=== PATIENT | male | born 1975 | race Caucasian/White ===

== ENCOUNTER → 2017-05-25 | Day surgery (SDC) | payer OTHER ==
[2017-05-17 07:45] VITALS: Ht 188 cm; Wt 150.0 kg
--- NOTE | 2017-05-20 10:17 | PAT Medication Instructions ---
Service Date May 20, 2017. Current Home Medication List Ibuprofen (Ibuprofen), 3 TAB PO Medication Instructions For Your Scheduled Surgery -Contact your surgeon if you plan on taking: Ibuprofen (Ibuprofen), 3 TAB PO NOTHING TO EAT OR DRINK AFTER MIDNIGHT If you have any questions please call us at [phone] or [phone] or [phone]
[2017-05-20 11:16] LABS: BASO % 0.4 %; BASO ABS # 0.03 K/uL (0-0.2); EOS % 1.3 %; HEMATOCRIT 47.5 % (42-52); HEMOGLOBIN 16.1 g/dL (14.0-18.0); IG# 0.05 K/uL (0.00-0.02); LYMPH % 33.2 %; LYMPH ABS # 2.47 K/uL (1.2-3.4); MEAN CELL VOLUME 85.6 fL (80-100); MEAN CORPUSCULAR HGB CONC 33.9 g/dl (32-36); MEAN PLATELET VOLUME 10.6 fL (7.4-10.4); MONO % 10.5 %; MONO ABS # 0.78 K/uL (0.11-0.59); NEUT % 53.9 %; NEUT ABS # 4.02 K/uL (1.4-6.5); PLATELET COUNT 230 K/uL (130-400); RED CELL DISTRIBUTION WIDTH CV 13.4 % (11.5-14.5); RED CELL DISTRIBUTION WIDTH SD 41.7 fL (36.4-46.3); WHITE BLOOD COUNT 7.45 K/uL (4.8-10.8)
[2017-05-20 11:22] LABS: CALCIUM 9.2 mg/dl (8.5-10.1); CREATININE 1.11 mg/dl (0.60-1.40); POTASSIUM 4.2 mmol/L (3.5-5.1)
[~2017-05-25] VITALS: Ht 188 cm; Wt 150.0 kg
[~2017-05-25] MED LIST: ALBUTEROL 0.083% NEBU SOLN 3 ML VIAL INH ONE; ALBUTEROL 0.083% NEBU SOLN 3 ML VIAL INH PRN; ATROPINE SULFATE 0.1 MG/ML 5ML SYR IV PRN; CEFAZOLIN 3000MG IV PUSH 15 ML IV SCH; DEXAMETHASONE SOD INJ 4 MG/ML VIAL ONE; EpHEDrine SULFATE INJ 50 MG/ML AMP IV PRN; EpINEphrine INJ 1MG/ML AMP 1 MG/ML AMP ONE; FENTANYL CITRATE INJ 50 MCG/1 ML 2 ML VIAL IV PRN; FENTANYL CITRATE INJ 50 MCG/1 ML 2 ML VIAL ONE; HYDROmorphone INJ 1 MG/ML SYR IV PRN; IBUP1CAP9 PO; KETO10TA PO; KETOROLAC TROMETHAMINE 30 MG/ML VIAL ONE; LACTATED RINGER'S 1000ML 1,000 ML IV SCH; LIDOCAINE HCL 2% 2 ML VIAL (20MG/ML) ONE; MIDAZOLAM HCL 1 MG/ML 2ML VIAL ONE; ONDANSETRON INJ 2 MG/ML 2 ML VIAL IV PRN; ONDANSETRON INJ 2 MG/ML 2 ML VIAL ONE; OXYC-57 PO; OXYCODONE/ACETAMINOPHEN 5-325 TAB PO PRN; PROMETHAZINE HCL INJ 25 MG in SODIUM CHLORIDE 0.9% 50ML 50 ML IV STA; PROMETHAZINE HCL INJ 25 MG/ML 1 ML VIAL ONE; PROPOFOL IV EMULSION 10 MG/ML 20 ML VIAL IV ONE; ROPIVACAINE 0.5% 5 MG/ML 30 ML VIAL ONE; SODIUM CHLORIDE 0.9% 1000ML 1,000 ML IV SCH; SUCCINYLCHOLINE CHLORIDE 20 MG/ML 10 ML VIAL IV ONE
--- NOTE | 2017-05-25 06:49 | History & Physical Bridge - SC ---
H&P Re-Evaluation Bridge Note: I have examined the patient, reviewed the History & Physical and in the interval since the performance of the History & Physical I have noted the following changes of clinical significance: No changes noted
--- NOTE | 2017-05-25 08:40 | [facility] Post Operative Brief Note ---
Immediate Operative Summary Operative Date May 25, 2017. Pre-Operative Diagnosis Right Knee Acute Medial Meniscal Tear Post-Operative Diagnosis Same + DJD Procedure(s) Performed Right Knee Arthroscopy, Partial Medial Menisectomy + Chondroplasty MFC + Patella Surgeon Dr. Harley Steam Plant Control Room Operator Surgeon(s) Jason Green PA-C Estimated Blood Loss Minimal Findings Consistent with Post-Op Diagnosis Specimens None Anesthesia Type General Complication(s) none Disposition Disposition: Recovery Room / PACU
--- NOTE | 2017-05-25 08:47 | Discharge Instructions-SurgCtr ---
Discharge Instructions Date of Service May 25, 2017. Visit Reason for Visit: Right Knee Acute Medial Meniscus Tear Discharge Discharge Diagnosis / Problem: right medial meniscus tear Discharge Goals Goal(s): Decrease discomfort, Therapeutic intervention Activity Recommendations Activity Limitations: per Instructions/Follow-up section Weightbearing Status: Right weightbearing (as tolerated) Anesthesia . Post Anesthesia Instructions: If you have had General Anesthesia or IV Sedation: * Do not drive today. * Resume driving when surgeon permits. * Do not make important decisions or sign legal documents today. * Call surgeon for: 1. Temperature elevations greater than 101 degrees F. 2. Uncontrollable pain. 3. Excessive bleeding. 4. Persistent nausea and vomiting. 5. Medication intolerance (nausea, vomiting or rash). * For nausea and vomiting use only clear liquids such as: tea, soda, bouillon until nausea subsides, then gradually increase diet as tolerated. * If you have any concerns or questions, call your surgeon's office. If physician is unavailable and it is an emergency, call 911 or go to the nearest emergency room. . Instructions / Follow-Up Instructions / Follow-Up MEDICATIONS: * Resume previous medications unless instructed otherwise by your surgeon. * Always take pain medication on a full stomach or with food to avoid upset stomach. * Do not drink alcohol or drive while taking narcotics. * Ibuprofen or Tylenol may be taken if narcotic not needed. No ibuprofen while taking toradol SPECIAL CARE INSTRUCTIONS: __ None _x_ Keep extremity elevated and iced x 48 hours; apply ice 20-30 minutes 8-10 times/day. May remove at night. __ Crutches __ May discard when able __ Brace/Post-op shoe __ 24 hrs/day __ Remove at night _x_ Dressing __ Maintain until seen in office, may shower with plastic over site _x_ Remove dressings in 24-48 hours and then may shower x__ Cover incisions with band-aids after showering __ Do not remove steri-strips Call physician if chills or temperature rises above 102 degrees or pain unrelieved by prescribed pain medications. Office [phone] follow up in 2 weeks Diet Recommendations Home Diet: resume previous diet Procedures Procedures Performed: Right Knee Arthroscopy With Partial Medial Meniscectomy, Chondroplasty Pending Studies Studies pending at discharge: no Medical Emergencies . Who to Call and When: Medical Emergencies: If at any time you feel your situation is an emergency, please call 911 immediately. . Non-Emergent Contact Non-Emergency issues call your: Surgeon . . "Provider Documentation" section prepared by Marco Antonio Green. .
[2017-05-25 09:34] VITALS: TEMP 36.6
--- NOTE | 2017-05-25 09:53 | OPERATIVE REPORT ---
DATE OF OPERATION: 05/25/2017 SURGEON: Mahesh Harley MD ANCHOR TACKER: BRYAN Coleman PREOPERATIVE DIAGNOSES: 1. Right knee degenerative medial meniscus tear. 2. Right knee degenerative joint disease. POSTOPERATIVE DIAGNOSES: 1. Right knee degenerative medial meniscus tear. 2. Right knee degenerative joint disease with some grade 2/3 chondrosis of the medial femoral condyle and patella. PROCEDURES PERFORMED: 1. Right knee exam under anesthesia. 2. Right knee diagnostic arthroscopy. 3. Right knee arthroscopic partial medial meniscectomy. 4. Right knee chondroplasty of the medial femoral condyle. 5. Right knee chondroplasty of the patella. COMPLICATIONS: None. ESTIMATED BLOOD LOSS: Minimal. TOURNIQUET TIME: 21 minutes at 300 mmHg. ANESTHESIA: General. SPECIMENS: None. OPERATIVE INDICATIONS: The patient is a 41-year-old fairly active gentleman who has had a several month history of right knee pain and discomfort, relates back to an injury that he had, where he felt a pop in his knee. He was seen in clinic and diagnosed with a significant knee effusion. MRIs showed a medial meniscus tear. He had fairly minimal degenerative changes on x-ray and MRI. The patient elected to proceed with surgical treatment. OPERATIVE FINDINGS: Examination under anesthesia of the right knee revealed a large soft tissue envelope. He had a small to moderate size effusion. Range of motion was 0-135. No clinical instability. Yue was negative for mechanical symptoms. ARTHROSCOPIC FINDINGS: Arthroscopic findings revealed a moderate sized effusion. He did have a lot of loose cartilage pieces floating throughout his knee and in the suprapatellar pouch. On the undersurface of patella, he had grade 2-3 changes. The trochlea revealed some mild grade 1 changes. In the intercondylar notch, the ACL and PCL were intact. In the medial compartment, there was a tear of the very posterior horn of the medial meniscus. There was a pretty stable tear. He had some grade 2 chondrosis of the medial femoral condyle. In the lateral compartment, the articular surface of the meniscus was fairly well preserved. There was a little bit frayed area of the very posterior horn of the lateral meniscus. OPERATIVE PROCEDURE: The patient was taken to the operating room, identified and placed on the operating table in the supine position. All contact areas were appropriately padded. IV antibiotics were provided by anesthesia team. A general anesthetic was implemented by anesthesia team. Right thigh tourniquet was then placed and the right lower extremity was then prepped and draped in the usual sterile fashion. The right leg was elevated and exsanguinated with Esmarch and tourniquet was placed at 300 mmHg. Routine right knee arthroscopy was then performed through typical anteromedial and anterolateral portals. A superolateral outflow portal was established for outflow. I did have to resect some of the fat pad in order to pass the instruments inside the knee joint. Attention was first drawn to the medial meniscus. A partial medial meniscectomy was then performed using a combination of both motorized and hand controlled instruments. I resected the flap portion of this tear posteriorly. The remainder of the meniscus was intact, so we left it in place. I used the shaver to debride the loose cartilage at the distal end of the femur. Attention was drawn to the patellofemoral joint. With the use of the shaver, I did debride the loose cartilage in the undersurface of the patella. Once this was complete, I did trim just a little fraying of the very posterior horn of the lateral meniscus. Minimal meniscal tissue was removed. Once this was complete, the arthroscopic instruments were placed throughout the knee joint. All extraneous and loose debris were removed. The arthroscopic instruments were then removed from the joint. The portals were closed with 3-0 Prolene suture in a simple fashion. The knee was injected with 30 mL of 0.5% ropivacaine with epinephrine and 30 mg of Toradol. Sterile dressing with Xeroform, 4 x 4's, sterile cast padding and Ady bandage were applied. The tourniquet was then let down for a tourniquet time 21 minutes. The patient then brought out of general anesthesia and transferred to the recovery room in stable condition. The patient tolerated the procedure well with no complications. All needle and sponge counts were correct at the end of the operation. I attest to the content of the Intraoperative Record and any orders documented therein. Any exception s are noted below.
--- NOTE | 2017-05-25 09:55 | Anesthesiology Progress Note ---
Anesthesia Post Op Note Date & Time May 25, 2017 at 09:55 Vital Signs Pain Intensity: 0 Vital Signs Past 12 Hours Date Time Temp Pulse Resp B/P (MAP) Pulse Ox O2 Delivery O2 Flow Rate FiO2 05/25/17 09:34 36.6 83 18 146/92 (110) 95 Room Air 05/25/17 09:27 85 15 95 05/25/17 09:27 85 15 05/25/17 09:26 128/90 05/25/17 09:24 86 16 05/25/17 09:24 87 16 91 05/25/17 09:23 37.2 84 16 133/81 92 Room Air 05/25/17 09:21 133/81 05/25/17 09:19 87 15 96 05/25/17 09:19 85 15 05/25/17 09:18 86 15 05/25/17 09:18 88 15 96 05/25/17 09:16 138/86 05/25/17 09:13 84 16 05/25/17 09:13 86 16 96 05/25/17 09:11 141/88 05/25/17 09:08 90 20 05/25/17 09:08 91 20 91 05/25/17 09:07 91 12 96 05/25/17 09:07 92 12 05/25/17 09:06 130/99 05/25/17 09:02 92 12 97 05/25/17 09:02 80 12 05/25/17 09:01 135/93 05/25/17 08:57 90 23 96 05/25/17 08:57 90 23 05/25/17 08:56 159/99 05/25/17 08:52 89 24 05/25/17 08:52 88 24 94 05/25/17 08:51 135/101 05/25/17 08:48 149/91 05/25/17 08:47 37.2 90 20 149/91 95 Diffusion Mask 10 05/25/17 06:30 36.4 109 22 132/98 (109) 92 Room Air Notes Mental Status: alert / awake / arousable, participated in evaluation Pt Amnestic to Procedure: Yes Nausea / Vomiting: improving with treatment Pain: adequately controlled Airway Patency, RR, SpO2: stable & adequate BP & HR: stable & adequate Hydration State: stable & adequate Anesthetic Complications: no major complications apparent
[2017-05-25 10:10] VITALS: BP 137/80; PULSE 84; O2SAT 94
--- NOTE | 2017-05-26 16:42 | Anesthesiology Progress Note ---
Anesthesia Progress Note Date of Service May 26, 2017. Progress Notes Mr. Torres is a 41 yo male s/p knee surgery in the outpatient surgical center with Dr. Harley. Preoperatively, his exam was notable for an URI with cough and initially low oxygen saturation (92%). Lungs were CTAB and saturation improved with deep breaths and so decision was made to proceed with surgery. During consent, it was explained to patient that his cough would likely be worse after surgery. Patient did well intraop without complications, but after removal of his LMA he had a violent coughing fit. His oxygen saturation remained normal while coughing and in PACU the patient's coughing resolved but exam was notable for wheezing. The patient was given an albuterol treatment and started on IS. In phase 2, the patient's commented on his eye's looking funny. Discussed with the patient that he had been coughing and suspected the bruised appearance under his eyes was due to the severity of his coughing. Patient and without any additional questions at that time and discharged home. Contacted through the patient's mother today due to concerns about bruising under his eyes. Spoke to the patient by phone today and patient stated he has bruising under both eyes. Reassured patient that other than his coughing, there were no additional complications during surgery. Explained the normal course of bruising in this situation including that tissue under orbits should be purple in appearance today and that it should change to a yellow/ green prior to resolving in the next 7 days. Explained to patient that this is not complication he should expect from anesthesia in the future unless he has another URI. Instructed patient to call with questions or concerns or to contact us if he develops pain, swelling, or vision changes. Patient did not have any additional concerns. Maria Victoria Jaffe MD, PhD Anesthesiologist
== END | disposition home or self-care (01) ==
LOC: X.SURG 06:21
PROVIDERS: ATTEND Orthopaedic Surgery Sports Medicine
DX: S83.241A Other tear of medial meniscus, current injury, right knee, initial encounter (principal); M17.11 Unilateral primary osteoarthritis, right knee; X58.XXXA Exposure to other specified factors, initial encounter; E66.9 Obesity, unspecified; Z88.2 Allergy status to sulfonamides; Z83.3 Family history of diabetes mellitus

== ENCOUNTER 2023-08-16 01:39 | Inpatient (IN) ==
--- NOTE | 2023-08-16 02:02 | Emergency Department Note ---
History of Present Illness General Chief complaint: Arrhythmia/Palpitations Stated complaint: HEART PALPITATIONS Time Seen by Provider: 08/16/23 01:48 History of Present Illness This 48-year-old male presents the ER complaining of irregular heart beating since 11-12 o'clock tonight. No history of known A-fib. He does have a history of SVT. He does follow cardiology for this. He is on a beta-ayla. He did not take an extra beta-ayla tonight. Patient denies chest pain, dyspnea, fevers, numbness, tingling, localized weakness. No excessive alcohol use. He does chew tobacco. Home Medications Medication Instructions Recorded Confirmed Type ibuprofen 200 mg tablet (Advil) 600 mg PO Q6H PRN Pain 11/30/18 08/16/23 History nebivolol 10 mg tablet 10 mg PO DAILY #90 tabs 04/26/23 08/16/23 Rx famotidine 20 mg tablet 20 mg PO BID 08/16/23 08/16/23 History Allergies Allergy/AdvReac Type Severity Reaction Status Date / Time Sulfa (Sulfonamide Allergy Unknown UNSURE, Verified 08/16/23 02:01 Antibiotics) MOTHER TOLD HIM A CHILD Past Med/Surg History Medical History Hypokalemia Elevated TSH Atypical chest pain Palpitations ACL (anterior cruciate ligament) tear Family History Other No pertinent family history in first degree relatives Social History Smoking Status: Current every day smoker Tobacco Type: Smokeless Tobacco (Dip or Chew) Preferred Language: Nauruan Feels Safe at Home: Yes Review of Systems A total of 10 systems reviewed and were otherwise negative Physical Exam Vital Signs Vital Signs - 24 hr 08/16/23 01:39 08/16/23 01:43 08/16/23 01:49 Temperature 36.9 C Temperature Source Oral Pulse Rate 74 Pulse Rate from SpO2 Sensor Respiratory Rate Respiratory Effort / Characteristics Non-Labored Respiratory Depth Normal Blood Pressure 180/81 H Blood Pressure Mean 114 Pulse Oximetry 96 Oxygen Delivery Method Room Air Room Air Sepsis Recent Fever Within 48 Hours No Sepsis New/Unexplained Change in Mental Status No Sepsis Action Taken by Nursing No Action Required 08/16/23 01:51 08/16/23 01:52 08/16/23 01:55 Temperature Temperature Source Pulse Rate 111 H 116 H 127 H Pulse Rate from SpO2 Sensor Respiratory Rate 19 15 Respiratory Effort / Characteristics Respiratory Depth Blood Pressure Blood Pressure Mean Pulse Oximetry Oxygen Delivery Method Sepsis Recent Fever Within 48 Hours Sepsis New/Unexplained Change in Mental Status Sepsis Action Taken by Nursing 08/16/23 01:55 08/16/23 02:00 08/16/23 02:02 Temperature Temperature Source Pulse Rate 113 H Pulse Rate from SpO2 Sensor Respiratory Rate 14 Respiratory Effort / Characteristics Respiratory Depth Blood Pressure 171/98 H 133/107 H Blood Pressure Mean 112 109 Pulse Oximetry Oxygen Delivery Method Sepsis Recent Fever Within 48 Hours Sepsis New/Unexplained Change in Mental Status Sepsis Action Taken by Nursing 08/16/23 02:02 08/16/23 02:08 08/16/23 02:08 Temperature Temperature Source Pulse Rate 113 H 79 Pulse Rate from SpO2 Sensor 72 Respiratory Rate 16 14 Respiratory Effort / Characteristics Respiratory Depth Blood Pressure 133/100 Blood Pressure Mean 106 Pulse Oximetry 93 Oxygen Delivery Method Sepsis Recent Fever Within 48 Hours Sepsis New/Unexplained Change in Mental Status Sepsis Action Taken by Nursing 08/16/23 02:10 08/16/23 02:15 08/16/23 02:15 Temperature Temperature Source Pulse Rate 95 H 92 H Pulse Rate from SpO2 Sensor 86 80 Respiratory Rate 12 17 Respiratory Effort / Characteristics Respiratory Depth Blood Pressure 147/102 H Blood Pressure Mean 121 Pulse Oximetry 95 94 Oxygen Delivery Method Sepsis Recent Fever Within 48 Hours Sepsis New/Unexplained Change in Mental Status Sepsis Action Taken by Nursing 08/16/23 02:26 08/16/23 02:30 08/16/23 02:30 Temperature Temperature Source Pulse Rate 98 H 91 H Pulse Rate from SpO2 Sensor 83 Respiratory Rate 16 17 Respiratory Effort / Characteristics Respiratory Depth Blood Pressure 133/105 H Blood Pressure Mean 116 Pulse Oximetry 96 Oxygen Delivery Method Sepsis Recent Fever Within 48 Hours Sepsis New/Unexplained Change in Mental Status Sepsis Action Taken by Nursing 08/16/23 02:40 08/16/23 02:46 08/16/23 02:50 Temperature Temperature Source Pulse Rate 64 100 H 85 Pulse Rate from SpO2 Sensor 64 79 77 Respiratory Rate 14 17 20 Respiratory Effort / Characteristics Respiratory Depth Blood Pressure 149/98 H Blood Pressure Mean 115 Pulse Oximetry 94 93 93 Oxygen Delivery Method Sepsis Recent Fever Within 48 Hours Sepsis New/Unexplained Change in Mental Status Sepsis Action Taken by Nursing 08/16/23 03:05 08/16/23 03:10 08/16/23 03:15 Temperature Temperature Source Pulse Rate 76 79 Pulse Rate from SpO2 Sensor 81 85 61 Respiratory Rate 18 14 Respiratory Effort / Characteristics Respiratory Depth Blood Pressure 155/92 H Blood Pressure Mean 113 Pulse Oximetry 95 94 94 Oxygen Delivery Method Sepsis Recent Fever Within 48 Hours Sepsis New/Unexplained Change in Mental Status Sepsis Action Taken by Nursing 08/16/23 03:20 08/16/23 03:28 08/16/23 03:30 Temperature Temperature Source Pulse Rate 64 65 63 Pulse Rate from SpO2 Sensor 65 63 Respiratory Rate 14 20 Respiratory Effort / Characteristics Respiratory Depth Blood Pressure 154/92 H Blood Pressure Mean 112 Pulse Oximetry 94 93 Oxygen Delivery Method Sepsis Recent Fever Within 48 Hours Sepsis New/Unexplained Change in Mental Status Sepsis Action Taken by Nursing 08/16/23 03:40 08/16/23 03:45 Temperature Temperature Source Pulse Rate 64 61 Pulse Rate from SpO2 Sensor 64 62 Respiratory Rate 16 20 Respiratory Effort / Characteristics Respiratory Depth Blood Pressure 141/76 H Blood Pressure Mean 97 Pulse Oximetry 93 92 Oxygen Delivery Method Sepsis Recent Fever Within 48 Hours Sepsis New/Unexplained Change in Mental Status Sepsis Action Taken by Nursing VITALS: Vitals are noted on the nurse's note and reviewed by myself. Vital signs tachycardia GENERAL: Pleasant gentleman, in no acute distress, nondiaphoretic, well- developed well-nourished. SKIN: Capillary reflex less than 2 seconds. HEENT: Normocephalic. PERRLA. EOMI. Nares patent. Mucous membranes moist. Neck is supple without nuchal rigidity. HEART: Tachycardic irregularly irregular LUNGS: Clear to auscultation bilaterally without wheezes, rales or rhonchi. No retractions or accessory muscle use. ABDOMEN: Positive bowel sounds x 4. Normal tympanic percussion. Soft, nontender, without masses or organomegaly. Olsen sign negative. No guarding or rebound tenderness. no CVA tenderness MUSCULOSKELETAL: No gross musculoskeletal defects. NEURO: Patient was alert and oriented to person place and time. No focal neurological deficits. Course Administered Medications Discontinued Medications Diltiazem HCl (Diltiazem Hcl 5 Mg/Ml 5 Ml Vial) Confirm Administered Dose 25 mg IV .aXess [place] ONE Stop: 08/16/23 01:55 Last Admin: 08/16/23 02:03 Dose: Not Given Documented By: LATOYA Diltiazem HCl (Diltiazem Hcl 5 Mg/Ml 5 Ml Vial) 10 mg IV NOW STA Stop: 08/16/23 01:57 Last Admin: 08/16/23 02:04 Dose: 10 mg Documented By: LATOYA Co-signed By: COLLEEN Sodium Chloride (Nss) 1,000 mls @ 999 mls/hr IV .Q1H1M ONE Stop: 08/16/23 02:56 Last Infusion: 08/16/23 03:01 Dose: Infused Documented By: Admin: 08/16/23 02:04 Dose: 999 mls/hr Documented By: LATOYA Ioversol (Optiray 320 125ml) 125 ml IV ONCE ONE Stop: 08/16/23 03:04 Last Admin: 08/16/23 03:03 Dose: 118 ml Documented By: VANE Critical Care Time Critical Care Time: Yes Total Critical Care Time: 35 I have personally spent 35 minutes of critical care time in the direct management of this patient. This includes bedside care, interpretation of diagnostic studies, and testing, discussion with consultants, patient, and family members, and other required patient management activities. This 35 minutes is in excess of all separately billable procedures. Medical Decision Making Medical Records Attestation: I reviewed the patient's medical records. Home Medications Current Medication List: was personally reviewed by me Laboratory Data Attestation: I reviewed the patient's lab results. 08/16/23 01:59 08/16/23 01:59 Lab Results 08/16/23 Range/Units 01:59 WBC 9.19 (4.8-10.8) K/ul RBC 5.80 (4.70-6.10) M/uL Hgb 16.6 (14.0-18.0) g/dl Hct 49.8 (42.0-52.0) % MCV 85.9 (80.0-100.0) fL MCH 28.6 (25.0-34.0) pg MCHC 33.3 (32.0-36.0) g/dL RDW Std Deviation 41.4 (36.4-46.3) fL RDW Coeff of Stephon 13.3 (11.5-14.5) % Plt Count 253 (130-400) K/uL MPV 10.7 (9.4-12.4) fL Immature Gran % (Auto) 0.3 % Neut % (Auto) 53.8 % Lymph % (Auto) 32.4 % [place] % (Auto) 10.0 % Eos % (Auto) 2.8 % Baso % (Auto) 0.7 % Neut # (Auto) 4.94 (1.40-6.50) K/uL Lymph # (Auto) 2.98 (1.20-3.40) K/uL [place] # (Auto) 0.92 H (0.11-0.59) K/uL Eos # (Auto) 0.26 (0.00-0.50) K/uL Baso # (Auto) 0.06 (0.00-0.20) K/uL Immature Gran # (Auto) 0.03 (0.01-0.20) K/uL Sodium 139 (136-145) mmol/L Potassium 3.9 (3.5-5.1) mmol/L Chloride 108 H (98-107) mmol/L Carbon Dioxide 24 (21-32) mmol/L Anion Gap 7 (3-11) BUN 20 (6-23) mg/dl Creatinine 1.08 (0.6-1.4) mg/dl Est Cr Clr Drug Dosing 131.2 ml/min Est GFR ( Amer) 94.2 ml/min Est GFR (Non-Af Amer) 81.3 ml/min BUN/Creatinine Ratio 18.5 (10-20) Glucose 100 H (70-99(Fasting)) mg/dl Calcium 9.9 (8.6-10.3) mg/dl Magnesium 2.2 (1.7-2.4) mg/dl Total Bilirubin 0.5 (0.2-1.0) mg/dl AST 23 (13-39) U/L ALT 25 (7-52) U/L Alkaline Phosphatase 72 (34-104) U/L Total Creatine Kinase 196 (30-223) U/L Troponin I High Sens 7.9 (0-20) pg/ml Total Protein 7.2 (6.0-8.3) gm/dl Albumin 4.5 (3.4-5.0) gm/dl Globulin 2.7 (2.5-4.0) gm/dl Albumin/Globulin Ratio 1.7 (0.9-2) TSH 6.914 H (0.300-4.500) uIu/ml Free T4 0.92 (0.61-1.60) ng/dl Imaging Data Attestation: I personally reviewed and interpreted this imaging study as follows: Radiologist's Impression: Chest CTA 08/16/23 02:25 Exam(s): CTA CHEST IV Amt: 118 ML OPTIRAY 320 EXAM: CT Angiography Chest With Intravenous Contrast CLINICAL HISTORY: Reason for exam: PE. TECHNIQUE: Axial computed tomographic angiography images of the chest with intravenous contrast. Automated exposure control was utilized for the study. A dose lowering technique was utilized adhering to the principles of ALARA. MIP reconstructed images were created and reviewed. COMPARISON: No relevant prior studies available. FINDINGS: Pulmonary arteries: Unremarkable. No pulmonary embolism. Aorta: No acute findings. No thoracic aortic aneurysm. Lungs: Unremarkable. No mass. No consolidation. Pleural space: Unremarkable. No significant effusion. No pneumothorax. Heart: Cardiomegaly. No significant pericardial effusion. No evidence of RV dysfunction. Bones/joints: Mild diffuse groundglass opacities joints. No acute fracture. No dislocation. Soft tissues: Unremarkable. Lymph nodes: Unremarkable. No enlarged lymph nodes. IMPRESSION: No acute findings in the visualized arteries of the chest. Electronically signed by: Gerard Dale MD 08/16/23 04:20 AM [facility] Narrative prior records/ancillary studies reviewed. Triage Nursing notes reviewed. Additional history obtained from family. The patient's history was concerning for palpitations. Differential diagnosis: Etiologies such as premature contractions, electrolyte abnormality, cardiac dysrhythmia, thyroid dysfunction, pulmonary embolism, infection, gastrointestinal, as well as others were entertained. Physical examination: Benign as above. ER treatment provided: Cardizem, IV fluids On reassessment the patient felt better. Diagnostic interpretation by me: An order was placed for continuous cardiac monitoring. The monitor shows a rate of 60-1 50 with a A-fib rhythm per my interpretation. The electrocardiogram was ordered for palpitaions ECG: Irregularly irregular ventricular rate of 111. Impression A-fib RVR independently interpreted by myself The labs Independently Interpreted by myself revealed No worrisome leukocytosis, negative troponin, glucose 100 Imaging studies: Chest x-ray with no acute consolidation, pneumothorax or free air per my independent interpretation CTA as above CHADS2 Score Sex (male 0, female 1): 0 Congestive HF (1): 0 Hypertension (1) :0 Age >75 years (1) :0 Diabetes mellitus (1):0 Stroke/TIA/TE (2): 0 Score: 0 CHADS2 Unadjusted ischemic stroke rate (% per year) 0: 0.6% 1: 3.0% 2: 4.2% 3: 7.1% 4: 11.1% 5: 12.5% 6: 13.0% Consultation: A consultation was placed with the hospitalist. The case was discussed and diagnostics were reviewed. The patient was evaluated in the ER for further treatment. This appears to be consistent with new onset A-fib. Patient was given Cardizem. Medicine was consulted and case discussed. He will be evaluated by the medical service for possible admission. CHADS2 score is 0. He is low risk. I did defer to anticoagulation to the hospitalist.. By the evaluation outlined above emergent etiologies such as electrolyte abnormality, thyroid dysfunction, pulmonary embolism, infection, as well as others were deemed relatively unlikely. The pt informed about the findings as listed above. All questions were answered and pleased with the treatment. The chart was completed utilizing [employer] Speech voice recognition software. Grammatical errors, random word insertions, pronoun errors, and incomplete sentences are an occassional consequence of this system due to software limitations, ambient noise, and hardware issues. Any formal questions or concerns about the content, text, or information contained within the body of this dictation should be directly addressed to the physician boiler assistant operator for clarification. Impression & Plan New onset atrial fibrillation, Atrial fibrillation with RVR Discharge Plan Visit Data Chief Complaint: Arrhythmia/Palpitations Stated Complaint: HEART PALPITATIONS ED Provider: Ines Fagan ED Midlevel Provider: Ragini Gamble Discharge Problem: New onset atrial fibrillation, Atrial fibrillation with RVR Patient Disposition: Admitted As Inpatient Condition: Good Forms Stand Alone Forms: [employer] Prescriptions Prescriptions: No Action nebivolol 10 mg tablet 10 mg PO DAILY Qty: 90 3RF ibuprofen [Advil] 200 mg Tablet 600 mg PO Q6H PRN (Reason: Pain) famotidine 20 mg tablet 20 mg PO BID Referrals Referrals: Aiden Briggs MD [Primary Care Provider] -
[2023-08-16] MEDS: dilTIAZem HCl 5 MG/ML 5 ML VIAL IV ONE (02:03)
[2023-08-16] MEDS: SODIUM CHLORIDE 0.9% 1,000 ML IV ONE (02:04)
[2023-08-16] MEDS: dilTIAZem HCl 5 MG/ML 5 ML VIAL IV STA (02:04)
[2023-08-16 02:18] LABS: Basophils # (auto) 0.06 K/uL (0.00-0.20); Basophils % (auto) 0.7 %; Eosinophils # (auto) 0.26 K/uL (0.00-0.50); Eosinophils % (auto) 2.8 %; Hematocrit (blood only) 49.8 % (42.0-52.0); Hemoglobin 16.6 g/dl (14.0-18.0); Immature Granulocytes # (auto) 0.03 K/uL (0.01-0.20); Immature Granulocytes % (auto) 0.3 %; Lymphocytes # (auto) 2.98 K/uL (1.20-3.40); Lymphocytes % (auto) 32.4 %; Mean Corpuscular Hemoglobin 28.6 pg (25.0-34.0); Mean Corpuscular Hgb Conc 33.3 g/dL (32.0-36.0); Mean Corpuscular Volume 85.9 fL (80.0-100.0); Mean Platelet Volume 10.7 fL (9.4-12.4); Monocytes # (auto) 0.92 K/uL (0.11-0.59); Neutrophils # (auto) 4.94 K/uL (1.40-6.50); Neutrophils % (auto) 53.8 %; Platelet Count 253 K/uL (130-400); RDW Coefficient of Variation 13.3 % (11.5-14.5); RDW Standard Deviation 41.4 fL (36.4-46.3); White Blood Count 9.19 K/ul (4.8-10.8)
[2023-08-16] MEDS ORDERED: STAT IV Infusion **Titration per Protocol STA (02:25)
[2023-08-16 02:42] LABS: Albumin Globulin Ratio 1.7 (0.9-2); Albumin Level 4.5 gm/dl (3.4-5.0); BUN Creatinine Ratio 18.5 (10-20); Bilirubin,Total 0.5 mg/dl (0.2-1.0); Calcium 9.9 mg/dl (8.6-10.3); Creatinine Clr Calc Pharmacy 131.2 ml/min; Est GFR (African American) 94.2 ml/min; Est GFR (Non-African American) 81.3 ml/min; Globulin 2.7 gm/dl (2.5-4.0); Magnesium 2.2 mg/dl (1.7-2.4); Potassium 3.9 mmol/L (3.5-5.1); Total Protein 7.2 gm/dl (6.0-8.3)
[2023-08-16 02:48] LABS: Troponin I High Sensitivity 7.9 pg/ml (0-20)
[2023-08-16 02:57] LABS: Thyroid Stimulating Hormone 6.914 uIu/ml (0.300-4.500)
[2023-08-16] MEDS: OPTIRAY 320 125ml IV ONE (03:03)
[2023-08-16 03:35] LABS: T4 Free Thyroxine 0.92 ng/dl (0.61-1.60)
--- NOTE | 2023-08-16 04:20 | CT Scan Report ---
Exam(s): CTA CHEST IV Amt: 118 ML OPTIRAY 320 EXAM: CT Angiography Chest With Intravenous Contrast CLINICAL HISTORY: Reason for exam: PE. TECHNIQUE: Axial computed tomographic angiography images of the chest with intravenous contrast. Automated exposure control was utilized for the study. A dose lowering technique was utilized adhering to the principles of ALARA. MIP reconstructed images were created and reviewed. COMPARISON: No relevant prior studies available. FINDINGS: Pulmonary arteries: Unremarkable. No pulmonary embolism. Aorta: No acute findings. No thoracic aortic aneurysm. Lungs: Unremarkable. No mass. No consolidation. Pleural space: Unremarkable. No significant effusion. No pneumothorax. Heart: Cardiomegaly. No significant pericardial effusion. No evidence of RV dysfunction. Bones/joints: Mild diffuse groundglass opacities joints. No acute fracture. No dislocation. Soft tissues: Unremarkable. Lymph nodes: Unremarkable. No enlarged lymph nodes. IMPRESSION: No acute findings in the visualized arteries of the chest. Electronically signed by: Gerard Dale MD 08/16/23 04:20 AM
[2023-08-16] MEDS: dilTIAZem HCL 125 MG in DEXTROSE 5% 100 ML IV SCH (04:59)
--- NOTE | 2023-08-16 05:22 | History & Physical Report ---
Date of Service August 16, 2023 Assessment & Plan (1) Atrial fibrillation with RVR: Plan: 48-year-old male with past medical history significant for hyperlipidemia, obstructive sleep apnea, paroxysmal SVT, palpitations, hypertension, obesity, GERD presents with palpitations and found to be in rapid A-fib. Patient states around 10 PM he started feeling palpitations. No dizziness. No chest pain. No shortness of breath, no nausea. No abdominal pain. Normal bowel and bladder movements. Denies blood in the stool or black stools. Denies hematuria. No fevers. No cough. Currently resting comfortably and hemodynamically stable. In the ER after dose of IV Cardizem he converted to sinus rhythm. A-fib with RVR New onset A-fib Currently sinus rhythm after IV Cardizem Continue home Bystolic IV Lopressor as needed Chads Vas2 score is 1 Monitoring telemetry Echo Consult cardiology for further recommendations History of paroxysmal SVT On Bystolic Obstructive sleep apnea On CPAP Hypertension On Bystolic Will monitor GERD On famotidine Morbid obesity Needs counseling Nutrition follow-up DVT prophylaxis SCDs for now Disposition Telemetry Full code History of Present Illness Chief Complaint: New A-fib Primary Care Provider: Aiden Briggs MD 48-year-old male with past medical history significant for hyperlipidemia, obstructive sleep apnea, paroxysmal SVT, palpitations, hypertension, obesity, GERD presents with palpitations and found to be in rapid A-fib. Patient states around 10 PM he started feeling palpitations. No dizziness. No chest pain. No shortness of breath, no nausea. No abdominal pain. Normal bowel and bladder movements. Denies blood in the stool or black stools. Denies hematuria. No fevers. No cough. Currently resting comfortably and hemodynamically stable. In the ER after dose of IV Cardizem he converted to sinus rhythm. Past medical's. As mentioned above Past surgical history. Colonoscopy. ACL repair of the left knee. Social history. . No smoking. Alcohol occasional. No drug use. Family history. Father had diabetes. Allergies Allergy/AdvReac Type Severity Reaction Status Date / Time Sulfa (Sulfonamide Allergy Unknown UNSURE, Verified 08/16/23 02:01 Antibiotics) MOTHER TOLD HIM A CHILD Home Medications Medication Instructions Recorded Confirmed Type ibuprofen 200 mg tablet (Advil) 600 mg PO Q6H PRN Pain 11/30/18 08/16/23 History nebivolol 10 mg tablet 10 mg PO DAILY #90 tabs 04/26/23 08/16/23 Rx famotidine 20 mg tablet 20 mg PO BID 08/16/23 08/16/23 History Past Med/Surg History Medical History Hypokalemia Elevated TSH Atypical chest pain Palpitations ACL (anterior cruciate ligament) tear Family History Other No pertinent family history in first degree relatives Social History Smoking Status: Current every day smoker Tobacco Type: Smokeless Tobacco (Dip or Chew) Preferred Language: Kittitian Feels Safe at Home: Yes Review of Systems Review of Systems: All systems reviewed & are unremarkable except as noted in HPI & below Physical Exam Physical Exam: General- Not in distress. Head- atraumatic Eyes- PERRL. ENT- oropharynx clear Neck- supple, no JVD. Lungs- clear to auscultation no wheezing or crackles. Heart- regular rhythm; no murmur, no gallop. Abdomen- normal bowel sounds, soft, nontender, no distension. Extremities- no pretibial edema, no erythema seen. Neuro- alert, oriented PERRL, no facial palsy; no dysarthria; moves extremities. Skin- warm & dry Results & Data Results & Data Vital Signs (Past 12 Hours) Vital Signs Temp Pulse Resp BP Pulse Ox O2 Del Method 08/16/23 04:50 53 L 18 94 08/16/23 04:45 51 L 17 119/91 91 08/16/23 04:40 55 L 15 91 08/16/23 04:30 56 L 17 122/81 91 08/16/23 04:20 60 19 90 08/16/23 04:16 58 L 19 135/72 91 08/16/23 04:10 57 L 20 91 08/16/23 04:00 60 17 148/76 H 95 08/16/23 03:50 69 12 95 08/16/23 03:45 61 20 141/76 H 92 08/16/23 03:40 64 16 93 08/16/23 03:30 63 20 154/92 H 93 08/16/23 03:28 65 08/16/23 03:20 64 14 94 08/16/23 03:15 79 14 155/92 H 94 08/16/23 03:10 76 18 94 08/16/23 03:05 95 08/16/23 02:50 85 20 93 08/16/23 02:46 100 H 17 149/98 H 93 08/16/23 02:40 64 14 94 08/16/23 02:30 133/105 H 08/16/23 02:30 91 H 17 96 08/16/23 02:26 98 H 16 08/16/23 02:15 147/102 H 08/16/23 02:15 92 H 17 94 08/16/23 02:10 95 H 12 95 08/16/23 02:08 79 14 93 08/16/23 02:08 133/100 08/16/23 02:02 113 H 16 08/16/23 02:02 133/107 H 08/16/23 02:00 113 H 14 08/16/23 01:55 171/98 H 08/16/23 01:55 127 H 15 08/16/23 01:52 116 H 19 08/16/23 01:51 111 H 08/16/23 01:49 Room Air 08/16/23 01:43 36.9 C 74 180/81 H 96 Room Air Diagnostic Findings Laboratory Results WBC 9.19 K/ul (4.8-10.8) 08/16/23 01:59 RBC 5.80 M/uL (4.70-6.10) 08/16/23 01:59 Hgb 16.6 g/dl (14.0-18.0) 08/16/23 01:59 Hct 49.8 % (42.0-52.0) 08/16/23 01:59 MCV 85.9 fL (80.0-100.0) 08/16/23 01:59 MCH 28.6 pg (25.0-34.0) 08/16/23 01:59 MCHC 33.3 g/dL (32.0-36.0) 08/16/23 01:59 RDW Std Deviation 41.4 fL (36.4-46.3) 08/16/23 01:59 RDW Coeff of Stephon 13.3 % (11.5-14.5) 08/16/23 01:59 Plt Count 253 K/uL (130-400) 08/16/23 01:59 MPV 10.7 fL (9.4-12.4) 08/16/23 01:59 Immature Gran % (Auto) 0.3 % 08/16/23 01:59 Neut % (Auto) 53.8 % 08/16/23 01:59 Lymph % (Auto) 32.4 % 08/16/23 01:59 [place] % (Auto) 10.0 % 08/16/23 01:59 Eos % (Auto) 2.8 % 08/16/23 01:59 Baso % (Auto) 0.7 % 08/16/23 01:59 Neut # (Auto) 4.94 K/uL (1.40-6.50) 08/16/23 01:59 Lymph # (Auto) 2.98 K/uL (1.20-3.40) 08/16/23 01:59 [place] # (Auto) 0.92 K/uL (0.11-0.59) H 08/16/23 01:59 Eos # (Auto) 0.26 K/uL (0.00-0.50) 08/16/23 01:59 Baso # (Auto) 0.06 K/uL (0.00-0.20) 08/16/23 01:59 Immature Gran # (Auto) 0.03 K/uL (0.01-0.20) 08/16/23 01:59 Sodium 139 mmol/L (136-145) 08/16/23 01:59 Potassium 3.9 mmol/L (3.5-5.1) 08/16/23 01:59 Chloride 108 mmol/L (98-107) H 08/16/23 01:59 Carbon Dioxide 24 mmol/L (21-32) 08/16/23 01:59 Anion Gap 7 (3-11) 08/16/23 01:59 BUN 20 mg/dl (6-23) 08/16/23 01:59 Creatinine 1.08 mg/dl (0.6-1.4) 08/16/23 01:59 Est Cr Clr Drug Dosing 131.2 ml/min 08/16/23 01:59 Est GFR ( Amer) 94.2 ml/min 08/16/23 01:59 Est GFR (Non-Af Amer) 81.3 ml/min 08/16/23 01:59 BUN/Creatinine Ratio 18.5 (10-20) 08/16/23 01:59 Glucose 100 mg/dl (70-99(Fasting)) H 08/16/23 01:59 Calcium 9.9 mg/dl (8.6-10.3) 08/16/23 01:59 Magnesium 2.2 mg/dl (1.7-2.4) 08/16/23 01:59 Total Bilirubin 0.5 mg/dl (0.2-1.0) 08/16/23 01:59 AST 23 U/L (13-39) 08/16/23 01:59 ALT 25 U/L (7-52) 08/16/23 01:59 Alkaline Phosphatase 72 U/L (34-104) 08/16/23 01:59 Total Creatine Kinase 196 U/L (30-223) 08/16/23 01:59 Troponin I High Sens 7.9 pg/ml (0-20) 08/16/23 01:59 Total Protein 7.2 gm/dl (6.0-8.3) 08/16/23 01:59 Albumin 4.5 gm/dl (3.4-5.0) 08/16/23 01:59 Globulin 2.7 gm/dl (2.5-4.0) 08/16/23 01:59 Albumin/Globulin Ratio 1.7 (0.9-2) 08/16/23 01:59 TSH 6.914 uIu/ml (0.300-4.500) H 08/16/23 01:59 Free T4 0.92 ng/dl (0.61-1.60) 08/16/23 01:59 Impressions Chest CTA 08/16/23 02:25 Exam(s): CTA CHEST IV Amt: 118 ML OPTIRAY 320 EXAM: CT Angiography Chest With Intravenous Contrast CLINICAL HISTORY: Reason for exam: PE. TECHNIQUE: Axial computed tomographic angiography images of the chest with intravenous contrast. Automated exposure control was utilized for the study. A dose lowering technique was utilized adhering to the principles of ALARA. MIP reconstructed images were created and reviewed. COMPARISON: No relevant prior studies available. FINDINGS: Pulmonary arteries: Unremarkable. No pulmonary embolism. Aorta: No acute findings. No thoracic aortic aneurysm. Lungs: Unremarkable. No mass. No consolidation. Pleural space: Unremarkable. No significant effusion. No pneumothorax. Heart: Cardiomegaly. No significant pericardial effusion. No evidence of RV dysfunction. Bones/joints: Mild diffuse groundglass opacities joints. No acute fracture. No dislocation. Soft tissues: Unremarkable. Lymph nodes: Unremarkable. No enlarged lymph nodes. IMPRESSION: No acute findings in the visualized arteries of the chest. Electronically signed by: Gerard Dale MD 08/16/23 04:20 AM ECG Additional Comments: ECG. A-fib with rapid ventricular response rate of 111. Incomplete right bundle branch block. Code Status & VTE Plan VTE Prophylaxis Plan VTE Prophylaxis will be ordered: Yes
[2023-08-16] MEDS ORDERED: POLYETHYLENE (MIRALAX) 17 GM PACK PO PRN (06:02)
[2023-08-16] MEDS ORDERED: METOPROLOL TARTRATE 1 MG/ML VIAL IV PRN (06:02)
[2023-08-16] MEDS ORDERED: NITROGLYCERIN SL 0.4 MG/TAB TAB SL PRN (06:02)
[2023-08-16] MEDS ORDERED: ACETAMINOPHEN 325 MG TAB PO PRN (06:02)
--- NOTE | 2023-08-16 06:58 | XRay Report ---
XR chest 1V portable CLINICAL HISTORY: Dysrhythmia COMPARISON STUDY: Chest radiograph April 21, 2023. FINDINGS: Lung volumes are normal. Lungs are clear. There is no pneumothorax or pleural effusion. Mil d cardiomegaly is unchanged. Mediastinal contours are normal. There is no evidence for pulmonary cass a. IMPRESSION: No acute cardiopulmonary findings. ACT 112: Negative or not required by law. Electronically signed by: Miky Patino M.D. 08/16/2023 6:56 AM
[2023-08-16 07:36] LABS: Basophils # (auto) 0.06 K/uL (0.00-0.20); Basophils % (auto) 0.8 %; Eosinophils # (auto) 0.23 K/uL (0.00-0.50); Eosinophils % (auto) 3.1 %; Hematocrit (blood only) 46.6 % (42.0-52.0); Hemoglobin 15.7 g/dl (14.0-18.0); Immature Granulocytes # (auto) 0.04 K/uL (0.01-0.20); Immature Granulocytes % (auto) 0.5 %; Lymphocytes # (auto) 2.27 K/uL (1.20-3.40); Lymphocytes % (auto) 30.9 %; Mean Corpuscular Hemoglobin 28.8 pg (25.0-34.0); Mean Corpuscular Hgb Conc 33.7 g/dL (32.0-36.0); Mean Corpuscular Volume 85.3 fL (80.0-100.0); Mean Platelet Volume 10.7 fL (9.4-12.4); Monocytes # (auto) 0.73 K/uL (0.11-0.59); Monocytes % (auto) 9.9 %; Neutrophils # (auto) 4.02 K/uL (1.40-6.50); Neutrophils % (auto) 54.8 %; Platelet Count 242 K/uL (130-400); RDW Coefficient of Variation 13.4 % (11.5-14.5); RDW Standard Deviation 41.9 fL (36.4-46.3); Red Blood Count 5.46 M/uL (4.70-6.10); White Blood Count 7.35 K/ul (4.8-10.8)
[2023-08-16 07:53] LABS: Calcium 9.7 mg/dl (8.6-10.3); Creatinine Clr Calc Pharmacy 141.7 ml/min; Est GFR (African American) 103.4 ml/min; Est GFR (Non-African American) 89.2 ml/min; Magnesium 2.1 mg/dl (1.7-2.4); Potassium 4.4 mmol/L (3.5-5.1)
[2023-08-16 08:01] LABS: Troponin I High Sensitivity 9.2 pg/ml (0-20)
--- OUTSIDE RECORDS SUMMARY | 2023-08-16 08:42 | External Medical Summary | Summary of Care ---
Author Name Unknown Organization [facility] Address [address] [place] [address] Phone [phone] Care Team Providers Care Byproducts Maker Name Role Phone Aiden Briggs MD Primary Care Provider [phone] Reason for Visit * Reason Onset Date Comments Appointment 08/03/2023 Encounter Details Date Type Department Care Team (Late st Contact Info) Description 08/03/2023 Telephone Radiology [address] [place] [address] Ana Polo, RT (R) Appointment Allergies Active Allergy Reactions Criticality Noted Date Comments Sulfa Antibiotics 04/20/2004 documented as of this encounter (statuses as of 08/03/2023) Medications Medication Sig Dispensed Refills Start Date End Date Status Nebivolol HCl 10 MG Oral Tablet (Bystolic) Take 1 Tablet by mouth in the morning. 0 05/01/2023 Active Famotidine 20 MG Oral Tablet (Pepcid) Take 1 Tablet by mouth in the morning and 1 Tablet before bedtime. 60 Tablet 11 06/08/2023 Active CPAP every night at bedtime. 0 Active documented as of this encounter (statuses as of 08/03/2023) Active Problems Problem Noted Date Diagnosed Date HTN, goal below 140/90 06/08/2023 Dyslipidemia, goal LDL below 100 06/08/2023 Left shoulder pain 06/08/2023 Palpitations 06/30/2022 Obesity, morbid (more than 1 00 lbs over ideal weight or BMI > 40) 06/25/2020 KWAKU (obstructive sleep apnea) 04/10/2019 Paroxysmal SVT (supraventricular tachycardia) Gastroesophageal reflux disease with esophagitis 04/10/2019 documented as of this encounter (statuses as of 08/03/2023) Resolved Problems Problem Noted Date Diagnosed Date Resolved Date Body mass index (BMI) of 40. 0 to 44.9 in adult 07/10/2018 04/10/2019 Overview: Per Obesity protocol #1 ADVANCE DIRECTIVE INFORMATION 04/21/2005 04/10/2019 Overview: No, Advance Directive brochure offered , patient declined. documented as of this encounter (statuses as of 08/03/2023) Social History Tobacco Use Types Packs/Day Years Used Date Smoking Tobacco: Never Smokeless Tobacco: Current Chew Alcohol Use Standard Drinks/Week Comments Yes 0 (1 standard drink = 0.6 oz pur e alcohol) occasional PHQ-2 Answer Date Recorded PHQ Adult Total Score 1 06/30/2022 Hunger Vital Sign Answer Date Recorded Within the past 12 months, y ou worried that your food would run out before you got the money to buy more. Never true 07/01/19 23 Within the past 12 months, t he food you bought just didn't last and you didn't have money to get more. Never true 06/30/2022 Sex and Gender Information Value Date Recorded Sex Assigned at Male 06/30/2022 8:51 AM EST Gender Identity Male 06/30/2022 8:51 AM EST Sexual Orientation Straight 06/30/2022 8: 51 AM EST Job Start Date Occupation Industry Not on file Not on file Not on file documented as of this encounter Miscellaneous Notes * Telephone Encounter - Ana Polo RT (R) - 08/03/2023 11:39 AM EDT Left message for patient to arrive at 6:30am for check in and to donte back with any Yes answers to screening questions documented in this encounter Plan of Treatment Upcoming Encounters Date Type Department Care Team (Latest Contact Info) Description 08/05/2023 7:00 AM EDT Imaging Radiology [facility] [address] [place] [address] 08/10/2023 9:30 AM EDT Hospital Encounter ENDO [facility], Endoscopy Room [facility] [address] [place] [phone] Maryan Richardson MD [address] [place] [address] 08/10/2023 9:30 AM EDT - 08/10/2023 10:00 AM EDT Surgery ENDO [facility], Endoscopy Room [facility] [address] [place] [phone] Maryan Richardson MD [address] [place] [address] COLONOSCOPY FLEXIBLE PROXIMAL DIAGNOSTIC 09/05/2023 11:00 AM EDT Telemedicine Interventional Pain Center, [facility] [address] [place] [address] Tangela Haley PA-C [address] [place] [address] 09/06/2023 9:40 AM EDT Office Visit Family Practice [facility] [address] [place] [address] Denise Mckeon CRNP [address] [place] [address] 06/14/2024 10:00 AM EST Telemedicine Sleep Disorders Ctr [facility] [address] [place] [phone] Dayami Costa DO [address] [place] [address] Scheduled Procedures Name Priority Associated Diagnoses Date/Ti me COLONOSCOPY FLEXIBLE PROXIMAL DIAGNOSTIC Screen for colon cancer 08/10/2023 9:30 AM EDT Health Maintenance Due Date Last Done Comments Hepatitis C Screening 1994 Hepatitis B (1 of 3 - 19+ 3-dose series) 1995 DTaP,Tdap,and Td Vaccines (1 - Tdap) 04/22/2005 04/21/2005 Cologuard 2021 Colonoscopy 2021 Colorectal Cancer Screening 2021 Fecal Occult Blood Test 2021 Sigmoidoscopy 2021 COVID-19 Vaccine ( - 2022- season) 2022 Depression Screening 07/01/2023 06/30/2022 Influenza Vaccine (FLU shot) (Season Ended) 2024 GFR 06/08/2024 06/08/2023, 03/0 05/2022, 10/16/2018 Albumin/Creatinine Ratio 06/08/2026 06/08/2023 Diabetes Screening 06/08/2026 06/08/2023, 0 06/30/2022, 06/25/2020, Additional history exists Lipid Panel 06/08/2028 06/08/2023, 03/0 05/2022, 06/25/2020, Additional history exists GARDASIL-HPV IMMUNIZATION SERIES Aged Out No longer eligible based on patient's age to complete this topic MENINGOCOCCAL (MENACTRA/MENVEO) Aged Out No longer eligible based on patient's age to complete this topic Pneumococcal Vaccine: Pediatrics (0 to 5 Years) and At-Risk Patients (6 to 64 Years) Aged Out No longer eligible based on patient's age to complete this topic documented as of this encounter Medical Devices Not on filedocumented as of this encounter Care Teams Byproducts Maker Relationship Specialty Start Date End Date Aiden Briggs MD [address] [place] [address] PCP - General Family Medicine 06/25/20 documented as of this encounter
--- OUTSIDE RECORDS SUMMARY | 2023-08-16 08:42 | External Medical Summary | Summary of Care ---
Author Name Unknown Organization [facility] Address [address] [facility] [place] [address] Phone [phone] Care Team Providers Care Video News Editor Name Role Phone Aiden Briggs MD Primary Care Provider [phone] Encounter Details Date Type Department Care Team (Late st Contact Info) Description 08/10/2023 3:30 PM EDT Telemedicine Interventional Pain Center, [facility] [address] [place] [address] Tangela Haley PA-C [address] [place] [address] Cervical radicular pain* Allergies Active Allergy Reactions Criticality Noted Date Comments Sulfa Antibiotics 04/20/2004 documented as of this encounter (statuses as of 08/11/2023) Medications Medication Sig Dispensed Refills Start Date [...] as of this encounter (statuses as of 08/11/2023) Active Problems Problem Noted Date Diagnosed Date HTN, goal below 140/90 06/08/2023 Dyslipidemia, goal LDL below 100 06/08/2023 Left shoulder pain 06/08/2023 Palpitations 06/30/2022 Obesity, morbid (more than 1 00 lbs over ideal weight or BMI > 40) 06/25/2020 KWAKU (obstructive sleep apnea) 04/10/2019 Paroxysmal SVT (supraventricular tachycardia) Gastroesophageal reflux disease with esophagitis 04/10/2019 documented as of this encounter (statuses as of 08/11/2023) Resolved Problems Problem Noted Date Diagnosed Date Resolved Date Body mass index (BMI) of 40. 0 to 44.9 in adult 07/10/2018 04/10/2019 Overview: Per Obesity protocol #1 ADVANCE DIRECTIVE INFORMATION 04/21/2005 04/10/2019 Overview: No, Advance Directive brochure offered , patient declined. documented as of this encounter (statuses as of 08/11/2023) Social History Tobacco Use Types Packs/Day Years [...] on file documented as of this encounter Progress Notes * Tangela Haley PA-C - 08/11/2023 7:49 AM EDT Name: Abilio Torres Date: 08/11/2023 Patient location: HOME. I was in a hospital or clinic location. After connecting through televideo,patient was verified with two unique identifiers. Patient (or authorized legal litigation claim representative) was then informed that this was a Telemedicine visit and being conducted confidentially over secure lines. Methods to assure confidentiality were taken. Patient acknowledged consent and understanding of pr ivacy and security of the Telemedicine visit. The patient agreed to participate. Video start 152 Video end [id number] HPI: Abilio Torres is a 48 year old male known to the Pain Management clinic presents for follow up to review C spine MRI. Locates pain left neck, posterior shoulder and UE into triceps and forearm. Can radiate into occipital region as well. Baseline weakness and paresthesia LEFT UE. Denies dexterity changes. Denies RIGHT UE pain. Denies bowel/bladder dysfunction. Follows with chiropractor which does provide some relief, generally weekly for the past three years. Continues home stretching/exercise program. Reviewed C spine MRI 08/04 - no acute fracture, mild to moderate LEFT foraminal narrowing C5/6, no significant central stenosis, diffuse facet arthropathy, no cord signal changes, moderate to severe RIGHT foraminal narrowing C5/6. History: Past Medical History: Diagnosis Date Gastroesophageal reflux disease with esophagitis 04/10/2019 NO KNOWN PROBLEMS Obesity, morbid (more than 100 lbs over ideal weight or BMI > 40) ([facility]) 06/25/2020 KWAKU (obstructive sleep apnea) 04/10/2019 Paroxysmal SVT (supraventricular tachycardia) ([facility]) 04/10/2019 Sleep apnea, obstructive Past Surgical History: Procedure Laterality Date REPAIR OF KNEE LIGAMENTS 1999 ACL repair of the left knee Current Outpatient Medications Medication Sig Dispense Refill Nebivolol HCl 10 MG Oral Tablet (Bystolic) Take 1 Tablet by mouth in the morning. Famotidine 20 MG Oral Tablet (Pepcid) Take 1 Tablet by mouth in the morning and 1 Tablet before bedtime. 60 Tablet 11 CPAP every night at bedtime. No current facility-administered medications for this visit. Review of patient's allergies indicates: Allergen Reactions Sulfa Antibiotics ROS: CONSTITUTIONAL: Denies anorexia, weight loss, fever, night sweats. RESPIRATORY: Denies shortness of breath, wheezing, productive cough. CARDIOVASCULAR: Denies chest pains, irregular heartbeat. HEME: Denies easy bruising and anticoagulation use. ROS EXAM: Remainder of ROS negative as discussed above in the HPI. PHYSICAL EXAM: There were no vitals taken for this visit. GENERAL: WD/WN male who is awake and alert. Does not appear to be in acute distress. MENTAL STATUS: Oriented x 3. Pleasant and cooperative with normal affect. IMAGING: MRI C SPINE WO CONTRAST 08/05/2023 7:13 am The alignment of the cervical spine is normal. A few vertebral hemangiomas are seen involving T1 and T3 vertebral bodies. Mild endplate degenerative changes are noted at C3-C4 and C4-C5 levels. Vertebral bodies otherwise demonstrate normal signal intensity on all sequences. No acute fracture is identified; however, if trauma is suspected, a CT scan would be a more sensitive examination for fractures. The craniocervical junction is normal. The visualized portions of the skull base and the posterior fossa are normal. The spinal cord demonstrates normal signal intensity on all sequences. Multilevel disc desiccation is seen in the cervical spine. There are no annular fissures identified. No soft tissue abnormality is identified. Normal signal voids are present in the vertebral arteries. C2-C3: The disk is normal in configuration. There is mild bilateral facet arthropathy. There is no uncovertebral joint disease. There is no neuroforaminal stenosis. There is no spinal canal stenosis. C3-C4: Mild disc bulge. There is mild bilateral facet arthropathy. There is kqxk-be-ccxkydjb right and mild left uncovertebral joint disease. There is daub-yt-grdpwtlz right and mild left neuroforaminal stenosis. There is no spinal canal stenosis. C4-C5: Mild disc bulge. There is pbpo-pa-iouyogjm bilateral facet arthropathy. There is mild bilateral uncovertebral joint disease. There is mild bilateral neuroforaminal stenosis. There is no spinalcanal stenosis. C5-C6: A small disc osteophyte complex. There is recb-en-cfiyaqsl bilateral facet arthropathy. There is moderate to severe right and vbyl-hn-bgwidyfj left uncovertebral joint disease. There is moderate to severe right and hlyg-tl-zqrdszev left neuroforaminal stenosis. There is no spinal canal stenos is. C6-C7: Minimal disc bulge. There is mild bilateral facet arthropathy. There is no uncovertebral joint disease. There is no neuroforaminal stenosis. There is no spinal canal stenosis. C7-T1: Mild disc bulge. There is mild bilateral facet arthropathy. There is no uncovertebral joint disease. There is no neuroforaminal stenosis. There is no spinal canal stenosis. IMPRESSION Multilevel degenerative changes in the cervical spine as described above, more pronounced at C5-C6 level with resultant moderate to severe right and cked-du-qswaseni left neural foraminal stenosis atthis level. No evidence of significant spinal canal stenosis. ASSESSMENT: Cervical radicular pain RECOMMENDATION: Continued neck pain that radiates to L UE. Baseline weakness and paresthesia. Symptoms are affecting ADL. Reviewed C spine MRI 08/04 - no acute fracture, mild to moderate LEFT foraminal narrowing C5/6, no significant central stenosis, diffuse facet arthropathy, no cord signal changes, moderate to severe RIGHT foraminal narrowing C5/6. Discussed possible EVELIA, declines for now - will contact clinicif interested. Discussed possible medication management including prescription NSAID (Celebrex or diclofenac) which would replace OTC NSAID. Could also consider gabapentin. Will send MyG with additional medication information. Reviewed red flag symptoms. Will contact clinic UE weakness worsens or begins to experience dexterity changes. I spent a total of 23 minutes on the date of service in preparation, delivery, and documentation ofthe care provided to Abilio Torres excluding any time spent in the performance of separately billed services. Tangela Haley PA-C 08/11/2023 documented in this encounter Plan of Treatment Upcoming Encounters Date Type Department Care Team (Late st Contact Info) Description 09/06/2023 9:40 AM EDT Office Visit Family Practice [facility] [address] [place] [address] Denise Mckeon CRNP [address] [place] [address] 06/14/2024 10:00 AM EST Telemedicine Sleep Disorders Ctr [facility] [address] [place] [phone] Dayami Costa DO [address] [place] [address] Health Maintenance Due Date Last Done Comments Hepatitis C Screening 1994 Hepatitis B (1 of 3 - 19+ 3-dose series) 1995 DTaP,Tdap,and Td Vaccines (1 - Tdap) 04/22/2005 04/21/2005 Cologuard 2021 Fecal Occult Blood Test 2021 Sigmoidoscopy 2021 COVID-19 Vaccine (1 - 2022- season) 2022 Depression Screening 07/01/2023 06/30/2022 Influenza Vaccine (FLU shot) (Season Ended) 2024 GFR 06/08/2024 06/08/2023, 03/0 05/2022, 10/16/2018 Albumin/Creatinine Ratio 06/08/2026 06/08/2023 Diabetes Screening 06/08/2026 06/08/2023, 0 06/30/2022, 06/25/2020, Additional history exists Lipid Panel 06/08/2028 06/08/2023, 03/0 05/2022, 06/25/2020, Additional history exists Colonoscopy 08/09/2033 08/10/2023 Colorectal Cancer Screening 08/09/2033 GARDASIL-HPV IMMUNIZATION SERIES Aged Out No longer [...] Not on filedocumented as of this encounter Visit Diagnoses Diagnosis Cervical radicular pain- Primary Brachial neuritis or radiculitis nos documented in this encounter Care Teams Video News Editor Relationship Specialty Start Date End Date Aiden Briggs MD [address] [place] [address] PCP - General Family Medicine 06/25/20 documented as of this encounter
--- OUTSIDE RECORDS SUMMARY | 2023-08-16 08:42 | External Medical Summary | Summary of Care ---
Author Name Unknown Organization [facility] Address [address] [facility] [place] [address] Phone [phone] Care Team Providers Care Filling Carrier Name Role Phone Aiden Briggs MD Primary Care Provider [phone] Reason for Visit * Auth/Cert Specialty Diagnoses / Procedures Referred By Tressa vazquez Referred To Contact Diagnoses Screen for colon cancer Screen for colon cancer [Z12.11] Procedures COLONOSCOPY, DIAGNOSTIC (RECTUM) COLONOSCOPY FLEXIBLE PROXIMAL DIAGNOSTIC Maryan Richardson MD [address] [place] [address] [facility] [address] [facility] [phone] Referral ID Status Reason Start Date Expiration Date Visits Re quested Visits Authorized [id number] [phone] Encounter Details Date Type Department Care Team (Latest Contact Info) Description 08/10/2023 8:40 AM EDT - 08/10/2023 10:45 AM EDT Hospital Encounter [facility], Endoscopy [facility] [address] [place] [address] Maryan Richardson MD [address] [facility] [place] [address] Colon[facility] Discharge Disposition: Home - Self Care Allergies Active Allergy Reactions Criticality Noted Date Comments Sulfa Antibiotics 04/20/2004 documented as of this encounter (statuses as of 08/10/2023) Medications Medication Sig Dispensed Refills Start Date [...] as of this encounter (statuses as of 08/10/2023) Active Problems Problem Noted Date Diagnosed Date HTN, goal below 140/90 06/08/2023 Dyslipidemia, goal LDL below 100 06/08/2023 Left shoulder pain 06/08/2023 Palpitations 06/30/2022 Obesity, morbid (more than 1 00 lbs over ideal weight or BMI > 40) 06/25/2020 KWAKU (obstructive sleep apnea) 04/10/2019 Paroxysmal SVT (supraventricular tachycardia) Gastroesophageal reflux disease with esophagitis 04/10/2019 documented as of this encounter (statuses as of 08/10/2023) Resolved Problems Problem Noted Date Diagnosed Date Resolved Date Body mass index (BMI) of 40. 0 to 44.9 in adult 07/10/2018 04/10/2019 Overview: Per Obesity protocol #1 ADVANCE DIRECTIVE INFORMATION 04/21/2005 04/10/2019 Overview: No, Advance Directive brochure offered , patient declined. documented as of this encounter (statuses as of 08/10/2023) Social History Tobacco Use Types Packs/Day Years [...] on file documented as of this encounter Last Filed Vital Signs Vital Sign Reading Time Taken Comments Blood Pressure 120/72 08/10/2023 10:36 AM EDT Pulse 54 08/10/2023 10:36 AM EDT Temperature 36.4 C (97.5 F) 08/10/2023 10:36 AM E DT Respiratory Rate 18 08/10/2023 10:36 AM EDT Oxygen Saturation 95% 08/10/2023 10:36 AM EDT Inhaled Oxygen Concentration - - Weight 144.2 kg (318 lb) 08/04/2023 2:35 PM EDT Height 190.5 cm (6' 3") 08/04/2023 2:35 PM EDT Body Mass Index 39.75 08/04/2023 2:35 PM EDT documented in this encounter H&P Notes * Maryan Richardson MD - 08/10/2023 9:45 AM EDT Endoscopy Pre-Procedure Assessment Name: Abilio Torres Date: 08/10/2023 Time: 9:45 AM Procedure(s): Colonoscopy; with Indication(s) of mom with polyps Endoscopy Pre-Procedure Assessment: Prior to the procedure, the patient is identified. The patient's history, medications and allergieshave been reviewed. The patient is competent. The risks and benefits of the proposed procedure and the planned sedation have been discussed with the patient. All questions have been answered and informed consent for the procedure has been obtained. Prior to Admission medications Medication Sig Last Dose Discont. CPAP every night at bedtime. 08/09/2023 Famotidine 20 MG Oral Tablet (Pepcid) Take 1 Tablet by mouth in the morning and 1 Tablet before bedtime. 08/09/2023 Nebivolol HCl 10 MG Oral Tablet (Bystolic) Take 1 Tablet by mouth in the morning. 08/09/2023 Amoxicillin-Pot Clavulanate 875-125 MG Oral Tablet (Augmentin) Take 1 Tablet by mouth in the morning and 1 Tablet before bedtime. Do all this for 10 days. Review of patient's allergies indicates: Allergen Reactions Sulfa Antibiotics BP 128/78 | Pulse 58 | Temp 36.4 C (97.6 F) (Tympanic) | Resp 16 | Ht 1.905 m (6' 3") | Wt (!) 144.2 kg (318 lb) | SpO2 96% | BMI 39.75 kg/m | BSA 2.76 m Physical Exam: Mental Status Examination: alert and oriented. Resp normal CV bradycardic to 55-59 range ASA Grade: II - A patient with mild systemic disease. Abdomen: soft This patient has undergone a preprocedural evaluation. A determination has been made to proceed with the planned procedure under [facility] procedural guidelines and the [facility] Non-Emergent, Elective Medical Services and Treatment Recommendations (published on 08-07-19). The community and hospital prevalence of COVID-19 has been discussed as well as this patient's specific risks associated with SARS-CoV-19 infection. Based upon the clinical acuity and patient-specific care considerations, this procedure is deemed a Tier III - Procedures at little or no risk for clinical deterioration (example - cosmetic). After reviewing the risks and benefits, the patient is deemed in satisfactory condition to undergo the procedure. The anesthesia plan is to use general anesthesia. Maryan Richardson MD 08/10/2023 documented in this encounter Procedure Notes * Aiden Briggs MD - 08/10/2023 9:45 AM EDTAssociated Order(s): COLONOSCOPY [facility] Patient Name: Abilio Torres Procedure Date: 08/10/2023 9:45 AM Date of : 1975 Admit Type: Outpatient Note Status: Finalized Date of : 1975 Admit Type: Outpatient Age: 48 Room: Endo 3 Gender: Male Note Status: Finalized Procedure: Colonoscopy Indications: Screening for colorectal malignant neoplasm Providers: Maryan Richardson MD, Iqra Peralta, Geneva Oquendo CRNA Patient Profile: Last Colonoscopy: none. The patient's first colonoscopy is today. Referring MD: Aiden Briggs MD Medicines: See the Anesthesia note for documentation of the administered medications Complications: No immediate complications. Procedure: Pre-Anesthesia Assessment: - Patient identification and proposed procedure were verified prior to the procedure by the physician, the nurse and the anesthesiologist. The procedure was verified in the pre-procedure area. - Prior to the procedure, a History and Physical was performed, and patient medications, allergies and sensitivities were reviewed. The patient's tolerance of previous anesthesia was reviewed. - The risks and benefits of the procedure and the sedation options and risks were discussed with the patient. All questions were answered and informed consent was obtained. - The medication list for this patient has been reviewed prior to the procedure and has been determined that the patient may proceed with the planned study. Any medication changes made as a result of the findings of this procedure have been discussed with the patient and/or livestock sales representative at the time of discharge from the department. - After I obtained informed consent, the scope was passed under direct vision. All instruments were visually inspected immediately before and after removal from the patient to ensure they are fully intact. Throughout the procedure, the patient's blood pressure, pulse, and oxygen saturations were monitored continuously. The [id number] Colonoscope ([id number]) was introduced through the anus and advanced to the terminal ileum. The colonoscopy was performed without difficulty. The patient tolerated the procedure well. The quality of the bowel preparation was adequate to identify polyps 6 mm and larger in size. Findings & Specimens: The examined terminal ileum appeared normal. The examined colon appeared normal. Two sessile polyps were found in the rectum. The polyps were 4 to 6 mm in size and were removed with a cold snare. Resection and retrieval were complete. The pathology specimen was placed into Bottle Number 1. Verification of patient identification for the specimen was done by the physician and nurse using the patient's name and medical record number. The exam was otherwise without abnormality on direct and retroflexion views. Impression: - The examined portion of the terminal ileum appeared normal. - The examined colon appeared normal. - Two 4 to 6 mm polyps in the rectum, removed with a cold snare. Resected and retrieved. - The examination was otherwise normal on direct and retroflexion views. Recommendation: - Await pathology results. - Repeat colonoscopy for surveillance based on pathology results (mother has polyps). Maryan Richardson MD 08/10/2023 10:16:47 AM This report has been signed electronically. documented in this encounter Nursing Notes * Van uBsh RN - 08/10/2023 10:40 AM EDT Patient is alert, pain free, passing flatus and tolerating po fluids prior to discharge. Patient has been visited by Dr. Richardson. Patient has received and demonstrates understanding of discharge instructions. Patient ambulated to private auto accompanied by endo staff. * Van Bush RN - 08/10/2023 10:20 AM EDT Patient transferred to post endo s/p colonoscopy. Patient sleeping on left side Respirations are even and unlabored on room air. NSR in the 50's on the monitor. Abdomen soft and non distended. Vital signs stable. * Samson Vegas RN - 08/10/2023 10:15 AM EDT Specimen(s) and location(s) verified with physician post procedure 10:15 AM Samson Vegas RN Pt massiel colonoscopy w/ polypectomy well. Abd soft post proc. To recovery lying on L side. Pre cleaning of scope at the bedside started by technology lead. * Kavya Rodriguez RN - 08/10/2023 9:23 AM EDT Pt prepped and ready for anesthesia to assess. Call chavis in reach. documented in this encounter Plan of Treatment Upcoming Encounters Date Type Department Care Team (Late st Contact Info) Description 09/06/2023 9:40 AM EDT Office Visit [address] [place] [address] Denise Mckeon CRNP [address] [place] [address] 06/14/2024 10:00 AM EST [facility] [address] [place] [phone] Dayami Costa, [address] [place] [address] Pending Results Name Type Priority Associated Diagnoses Date /Time SURGICAL PATHOLOGY Pathology Routine Screen for colon cancer 08/10/2023 10:16 AM EDT Scheduled Orders Name Type Priority Associated Diagnoses Orde r Schedule SURGICAL PATHOLOGY Pathology Routine Screen for colon cancer Release Upon Ordering for 1 Occurrences starting 08/10/2023, 1 completed Scheduled Procedures Name Priority Associated Diagnoses Date/Ti me COLONOSCOPY FLEXIBLE PROXIMAL DIAGNOSTIC Screen for colon cancer 08/10/2023 9:56 AM EDT Health Maintenance Due Date Last Done Comments Hepatitis C Screening 1994 Hepatitis B (1 of 3 - 19+ 3-dose series) 1995 DTaP,Tdap,and Td Vaccines (1 - Tdap) 04/22/2005 04/21/2005 Cologuard 2021 Fecal Occult Blood Test 2021 Sigmoidoscopy 2021 COVID-19 Vaccine ( - season) 2022 Depression Screening 07/01/2023 06/30/2022 Influenza Vaccine (FLU shot) (Season Ended) 2024 GFR 06/08/2024 06/08/2023, 030 05/2022, 10/16/2018 Albumin/Creatinine Ratio 06/08/2026 06/08/2023 Diabetes [...] Not on filedocumented as of this encounter Procedures Procedure Name Priority Date/Time Associated Diagnosis Comments COLONOSCOPY 08/10/2023 9:45 AM EDT documented in this encounter Results * COLONOSCOPY (08/10/2023 9:45 AM EDT) 08/10/2023 9:45 AM EDT Narrative Procedure Note Aiden Briggs MD - 08/10/2023 9:45 AM EDT [facility] Patient Name: Abilio Torres Procedure Date: 08/10/2023 9:45 AM Date of : 1975 Admit Type: Outpatient Note Status:Finalized Date of : 1975 Admit Type: Outpatient Age: 48 Room: [facility] 3 Gender: Male Note Status: Finalized Procedure: Colonoscopy Indications: Screening for colorectal malignant neoplasm Providers: Maryan Richardson MD, Geneva Mckeon CRNA Patient Profile: Last Colonoscopy: none. The patient's firstcolonoscopy is today. Referring MD: Aiden Briggs MD Medicines: See the Anesthesia note for documentation of theadministered medications Complications: No immediate complications. Procedure: Pre-Anesthesia Assessment: - Patient identification and proposed procedurewere verified prior to the procedure by the physician, the nurse and theanesthesiologist. The procedure was verified in the pre-procedure area. - Prior to the procedure, a History and Physicalwas performed, and patient medications, allergies and sensitivities werereviewed. The patient's tolerance of previous anesthesia was reviewed. - The risks and benefits of the procedure and thesedation options and risks were discussed with the patient. All questions wereanswered and informed consent was obtained. - The medication list for this patient has beenreviewed prior to the procedure and has been determined that the patient may proceed with the plannedstudy. Any medication changes made as a result of the findings of this procedure have beendiscussed with the patient and/or livestock sales representative at the [facility]. - After I obtained informed consent, the scope waspassed under direct vision. All instruments were visually inspected immediatelybefore and after removal from the patient to ensure they are fully intact. Throughout the procedure, the patient's bloodpressure, pulse, and oxygen saturations were monitored continuously. The [employer]-[id number] ([id number]) was introduced through the anus and advanced to the terminalileum. The colonoscopy was performed without difficulty. The patient tolerated theprocedure well. The quality of the bowel preparation was adequate to identify polyps 6mm and larger in size. Findings & Specimens: The examined terminal ileum appeared normal. The examined colon appeared normal. Two sessile polyps were found in the rectum. The polyps were 4 to 6mm in size and were removed with a cold snare. Resection and retrieval were complete. The pathologyspecimen was placed into Bottle Number 1. Verification of patient identification for the specimen was doneby the physician and nurse using the patient's name and medical record number. The exam was otherwise without abnormality on direct and retroflexionviews. Impression: - The examined portion of the terminal ileumappeared normal. - The examined colon appeared normal. - Two 4 to 6 mm polyps in the rectum, removed witha cold snare. Resected and retrieved. - The examination was otherwise normal on directand retroflexion views. Recommendation: - Await pathology results. - Repeat colonoscopy for surveillance based onpathology results (mother has polyps). Maryan Richardson MD 08/10/2023 10:16:47 AM This report has been signed electronically. Aiden Briggs MD [facility] documented in this encounter Visit Diagnoses Diagnosis Screen for colon cancer Special screening for malignant neoplasms, colon documented in this encounter Administered Medications Inactive Administered Medications - up to 3 most recent administrations Medication Order MAR Action Action Date Dose Rate Site isolyte-S pH 7.4 infusion Intravenous, at 75 mL/hr, for Outpatient patient Plasma-LYTE 148, isolyte-S, and isolyte-S pH 7.4 are considered equivalent - including for MAR barcode scanning., CONTINUOUS, Starting on Tue08/10/23 at 0930, Until Tue08/10/23 at 1445, Pre-Op Continue from Pre-Op 08/10/2023 9:43 AM EDT 75 mL/hr New Bag 08/10/2023 9:22 AM EDT 75 mL/hr 75 mL/hr documented in this encounter Active and Recently Administered Medications Times are shown in EDT. Continuous Medication Order 08/08/2023 08/09/2023 08/10/2023 isolyte-S pH 7.4 infusion Intravenous, at 75 mL/hr, for Outpatient patient Plasma-LYTE 148, isolyte-S, and isolyte-S pH 7.4 are considered equivalent - including for MAR barcode scanning., CONTINUOUS, Starting on Tue08/10/23 at 0930, Until Tue08/10/23 at 1445, Pre-Op 0922 (New Bag - Prov ider: Kavya Rodriguez RN)0943 (Continue from Pre-Op - Provider: Andressa Khan CRNA)1013 (Anes Intra-Op Fluid - Provider: Andressa Khan CRNA) documented in this encounter Care Teams Filling Carrier Relationship Specialty Start Date End Date Aiden Briggs MD [address] [place] [address] PCP - General Family Medicine 06/25/20 documented as of this encounter
[2023-08-16] MEDS ORDERED: METOPROLOL TARTRATE 50 MG TAB PO SCH (09:00)
[2023-08-16] MEDS: FAMOTIDINE 20 MG TAB PO SCH (09:44)
--- NOTE | 2023-08-16 10:01 | Cardiology Consultation ---
Date of Consultation August 16, 2023 Assessment & Plan (1) Atrial fibrillation with RVR: Plan 1. Atrial fibrillation: The rhythm documented at the time of his admission is consistent with atrial fibrillation. This is the 1st documentation of atrial fibrillation. Based on his symptoms extended episodes of this nature are quite rare. No other associated symptoms. He converted spontaneously after couple of hours. Unclear if his physical activity precipitated the episode. Also possible that 3 beers with dinner precipitated an episode. We discussed several options for treatment moving forward. One would simply monitoring him for recurrent symptoms. He will continue on Bystolic. Symptoms are fairly infrequent at this point. We discussed a pill in the pocket approach. He was interested and I will provide him with some flecainide. Another option would be daily flecainide. He has had several stress test both of which did not demonstrate ischemia. Very mild LVH which I do not think is a contraindication to flecainide use. However, he would prefer to avoid long-term medications and I think that is reasonable given the infrequent nature of his events. With respect to anticoagulation, he has a chads Vasc score 1. This puts him at a very low risk of thromboembolic events over time. Think he dries little benefit from the addition of anticoagulation at this point. We shared decision making and decided on avoiding systemic anticoagulation currently. I think he is safe for discharge. I will prescribe him the aforementioned flecainide. Will provide him with an outpatient monitor to better characterize additional palpitations and see if there is more undocumented atrial fibrillation. 2. Aortic root dilation: This was mention on his stress echocardiogram performed last year at [facility]. However, the CTA performed at our institution did not demonstrate aortic enlargement. History of Present Illness Reason for Consultation: Atrial fibrillation Requesting Physician: Harmony Attending Physician: Lissette Williamson MD History of Present Illness The patient is a 48 gentleman with a history of SVT who presents to the emergency room last evening with symptoms of palpitations. Patient reports a long history of palpitations. Typically speaking these occur when he is resting at nighttime. They are fairly fleeting in nature and not sustained. They tend not to be associated with other symptoms. On rare occasions he has had more extended episodes requiring emergency room evaluation. Yesterday he was working quite vigorously. He also had 3 beers with dinner over 2 hours. Early this morning he awoke with palpitations there was somewhat different than prior symptoms. Again, there was no associated dizziness, lightheadedness or chest pain. He tried some standard vagal maneuvers which failed to return him to a normal rhythm. Based on the nature of the symptoms in the prolonged episode he presented to the emergency room was discovered to have atrial fibrillation. He converted to normal sinus rhythm around 3:00 a.m.. He has been feeling fine since. 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 He states that on certain occasions went with certain physical activity he is more likely to have symptoms like he did last night. Feels that chiropractic adjustments often times improve his palpitations. In the past he has used vagal maneuvers with success at terminating episodes of palpitation. Allergies Allergy/AdvReac Type Severity Reaction Status Date / Time Sulfa (Sulfonamide Allergy Unknown UNSURE, Verified 08/16/23 02:01 Antibiotics) MOTHER TOLD HIM A CHILD Home Medications Medication Instructions Recorded Confirmed Type ibuprofen 200 mg tablet (Advil) 600 mg PO Q6H PRN Pain 11/30/18 08/16/23 History nebivolol 10 mg tablet 10 mg PO DAILY #90 tabs 04/26/23 08/16/23 Rx famotidine 20 mg tablet 20 mg PO BID 08/16/23 08/16/23 History Patient History Medical History Hypokalemia Elevated TSH Atypical chest pain Palpitations ACL (anterior cruciate ligament) tear Family History Other No pertinent family history in first degree relatives Social History Smoking Status: Current every day smoker Tobacco Type: Smokeless Tobacco (Dip or Chew) Preferred Language: Croatian Feels Safe at Home: Yes Review of Systems Review of Systems: Per HPI Physical Exam Physical Exam: The patient is alert and oriented. Mood and affect appeared normal. He answered all questions appropriately. HEENT: Pupils are equal and reactive to light and accommodation. Extraocular movements are intact. The sclerae are anicteric. Neuro: Cranial nerves intact Lungs: Clear to auscultation bilaterally. He has good air movement without use of accessory muscles. No rales wheezes or rhonchi. Cardiac: Heart demonstrates a regular rate and rhythm. Normal S1 and S2. No murmurs on examination. Pulses: The patient has palpable radial pulses bilaterally that are equal in intensity Extremities: There was no evidence of hypoperfusion. There is no cyanosis or clubbing. There is no edema. Skin: I did not appreciate any rashes on examination today. Results & Data Vital Signs (Past 12 Hours) Vital Signs Temp Pulse Pulse Resp BP Pulse Ox Pulse Ox 08/16/23 09:00 159/91 H 08/16/23 09:00 50 L 15 96 08/16/23 08:30 135/85 08/16/23 08:30 48 L 14 96 08/16/23 08:19 55 L 19 96 08/16/23 08:19 144/76 H 08/16/23 08:00 140/91 08/16/23 08:00 51 L 17 94 08/16/23 07:30 60 17 94 08/16/23 07:30 118/61 08/16/23 07:00 168/101 H 08/16/23 07:00 48 L 16 93 08/16/23 07:00 96 08/16/23 06:59 48 L 08/16/23 06:30 110/62 08/16/23 06:30 51 L 17 93 08/16/23 06:02 62 18 92 08/16/23 06:02 99 08/16/23 06:01 123/88 08/16/23 06:01 49 L 17 88 L 08/16/23 06:00 55 L 14 94 08/16/23 05:30 128/70 08/16/23 05:30 52 L 18 93 08/16/23 05:18 146/73 H 08/16/23 05:18 57 L 16 95 08/16/23 04:50 53 L 18 94 08/16/23 04:45 51 L 17 119/91 91 08/16/23 04:40 55 L 15 91 08/16/23 04:30 56 L 17 122/81 91 08/16/23 04:20 60 19 90 08/16/23 04:16 58 L 19 135/72 91 08/16/23 04:10 57 L 20 91 08/16/23 04:00 60 17 148/76 H 95 08/16/23 03:50 69 12 95 08/16/23 03:45 61 20 141/76 H 92 08/16/23 03:40 64 16 93 08/16/23 03:30 63 20 154/92 H 93 08/16/23 03:28 65 08/16/23 03:20 64 14 94 08/16/23 03:15 79 14 155/92 H 94 08/16/23 03:10 76 18 94 08/16/23 03:05 95 08/16/23 02:50 85 20 93 08/16/23 02:46 100 H 17 149/98 H 93 08/16/23 02:40 64 14 94 08/16/23 02:30 133/105 H 08/16/23 02:30 91 H 17 96 08/16/23 02:26 98 H 16 08/16/23 02:15 147/102 H 08/16/23 02:15 92 H 17 94 08/16/23 02:10 95 H 12 95 08/16/23 02:08 79 14 93 08/16/23 02:08 133/100 08/16/23 02:02 113 H 16 08/16/23 02:02 133/107 H 08/16/23 02:00 113 H 14 08/16/23 01:55 171/98 H 08/16/23 01:55 127 H 15 08/16/23 01:52 116 H 19 08/16/23 01:51 111 H 08/16/23 01:49 08/16/23 01:43 36.9 C 74 180/81 H 96 O2 Del Method O2 Del Method 08/16/23 09:00 08/16/23 09:00 08/16/23 08:30 08/16/23 08:30 08/16/23 08:19 08/16/23 08:19 08/16/23 08:00 08/16/23 08:00 08/16/23 07:30 08/16/23 07:30 08/16/23 07:00 08/16/23 07:00 08/16/23 07:00 Room Air 08/16/23 06:59 08/16/23 06:30 08/16/23 06:30 08/16/23 06:02 Room Air 08/16/23 06:02 Room Air 08/16/23 06:01 08/16/23 06:01 08/16/23 06:00 08/16/23 05:30 08/16/23 05:30 08/16/23 05:18 08/16/23 05:18 08/16/23 04:50 08/16/23 04:45 08/16/23 04:40 08/16/23 04:30 08/16/23 04:20 08/16/23 04:16 08/16/23 04:10 08/16/23 04:00 08/16/23 03:50 08/16/23 03:45 08/16/23 03:40 08/16/23 03:30 08/16/23 03:28 08/16/23 03:20 08/16/23 03:15 08/16/23 03:10 08/16/23 03:05 08/16/23 02:50 08/16/23 02:46 08/16/23 02:40 08/16/23 02:30 08/16/23 02:30 08/16/23 02:26 08/16/23 02:15 08/16/23 02:15 08/16/23 02:10 08/16/23 02:08 08/16/23 02:08 08/16/23 02:02 08/16/23 02:02 08/16/23 02:00 08/16/23 01:55 08/16/23 01:55 08/16/23 01:52 08/16/23 01:51 08/16/23 01:49 Room Air 08/16/23 01:43 Room Air Laboratory Results Abnormal Lab Results 08/16/23 08/16/23 01:59 07:09 WBC 9.19 7.35 RBC 5.80 5.46 Hgb 16.6 15.7 Hct 49.8 46.6 MCV 85.9 85.3 MCH 28.6 28.8 MCHC 33.3 33.7 RDW Std Deviation 41.4 41.9 RDW Coeff of Stephon 13.3 13.4 Plt Count 253 242 MPV 10.7 10.7 Immature Gran % (Auto) 0.3 0.5 Neut % (Auto) 53.8 54.8 Lymph % (Auto) 32.4 30.9 Summers % (Auto) 10.0 9.9 Eos % (Auto) 2.8 3.1 Baso % (Auto) 0.7 0.8 Neut # (Auto) 4.94 4.02 Lymph # (Auto) 2.98 2.27 Summers # (Auto) 0.92 H 0.73 H Eos # (Auto) 0.26 0.23 Baso # (Auto) 0.06 0.06 Immature Gran # (Auto) 0.03 0.04 Sodium 139 138 Potassium 3.9 4.4 Chloride 108 H 108 H Carbon Dioxide 24 25 Anion Gap 7 5 BUN 20 18 Creatinine 1.08 1.00 Est Cr Clr Drug Dosing 131.2 141.7 Est GFR ( Amer) 94.2 103.4 Est GFR (Non-Af Amer) 81.3 89.2 BUN/Creatinine Ratio 18.5 18.0 Glucose 100 H 98 Calcium 9.9 9.7 Magnesium 2.2 2.1 Total Bilirubin 0.5 AST 23 ALT 25 Alkaline Phosphatase 72 Total Creatine Kinase 196 Troponin I High Sens 7.9 9.2 Total Protein 7.2 Albumin 4.5 Globulin 2.7 Albumin/Globulin Ratio 1.7 TSH 6.914 H Free T4 0.92 Diagnostic Findings Chest CTA did not demonstrate any evidence pulmonary embolus. No other abnormal findings. No mention of aortic atherosclerosis. Chest x-ray at the time admission did not reveal any acute cardiopulmonary process. [facility]: Patient exercised for 9 minutes. No evidence of inducible ischemia. Normal LV systolic function with ejection fraction of 60 64%. Mild concentric LVH. No significant valvular heart disease. Moderate aortic root enlargement. Mildly enlarged thoracic ascending aorta. Hypertensive response to exercise ECG Additional Comments: EKG the time admission revealed atrial fibrillation and rapid ventricular response. Nonspecific ST and T-wave changes. PG Care Time/CCT Total # of Minutes Spent Total Time Spent with Patient: Total time spent is greater than 50% in coordination of care (as documented) at patient's floor/unit and/or counseling patient: Coding Level of Care Code 91104 IN/OBS CONSULT LVL 4,60M Diagnoses Atrial fibrillation with RVR I48.91
--- NOTE | 2023-08-16 11:19 | Discharge Summary ---
Date of Service August 16, 2023 Admission HPI Per Admitting Provider 48-year-old male with past medical history significant for hyperlipidemia, obstructive sleep apnea, paroxysmal SVT, palpitations, hypertension, obesity, GERD presents with palpitations and found to be in rapid A-fib. Patient states around 10 PM he started feeling palpitations. No dizziness. No chest pain. No shortness of breath, no nausea. No abdominal pain. Normal bowel and bladder movements. Denies blood in the stool or black stools. Denies hematuria. No fevers. No cough. Currently resting comfortably and hemodynamically stable. In the ER after dose of IV Cardizem he converted to sinus rhythm. Past medical's. As mentioned above Past surgical history. Colonoscopy. ACL repair of the left knee. Social history. . No smoking. Alcohol occasional. No drug use. Family history. Father had diabetes. Admission Exam Per Admitting Provider General- Not in distress. Head- atraumatic Eyes- PERRL. ENT- oropharynx clear Neck- supple, no JVD. Lungs- clear to auscultation no wheezing or crackles. Heart- regular rhythm; no murmur, no gallop. Abdomen- normal bowel sounds, soft, nontender, no distension. Extremities- no pretibial edema, no erythema seen. Neuro- alert, oriented PERRL, no facial palsy; no dysarthria; moves extremities. Skin- warm & dry Principal Diagnosis Paroxysmal Atrial fibrillation with rapid ventricular rate Discharge Exam Constitutional + well hydrated and + obese; no acute distress Eyes PERRL, conjunctivae normal, anicteric sclerae ENMT external ear and nose normal, oropharynx normal Respiratory normal respiratory effort, lungs clear to auscultation Cardiovascular Rate/Rhythm: regular rhythm and + bradycardic Gastrointestinal (Abdomen) normal bowel sounds, soft, nontender, no hepatosplenomegaly Musculoskeletal no cyanosis or clubbing, extremities motor strength 5/5 No pedal edema Neurologic PERRL, EOMI, accommodation nl, no face palsy, no dysarthria Psychiatric A+Ox3, euthymic affect Discharge Data Allergies Allergy/AdvReac Type Severity Reaction Status Date / Time Sulfa (Sulfonamide Allergy Unknown UNSURE, Verified 08/16/23 02:01 Antibiotics) MOTHER TOLD HIM A CHILD Consultations 08/16/23 04:06 ED Decision to Admit Stat 08/16/23 08:00 Consult Cardiology Routine Ordered Studies 08/16/23 02:25 CT angio chest PE protocol Stat Hospital Course (1) Atrial fibrillation with RVR: 48-year-old male with past medical history significant for hyperlipidemia, obstructive sleep apnea, paroxysmal SVT, palpitations, hypertension, obesity, GERD presents with palpitations and found to be in rapid A-fib. Patient stated around 10 PM he started feeling palpitations. No dizziness. No chest pain. No shortness of breath, no nausea. No abdominal pain. Normal bowel and bladder movements. Denies blood in the stool or black stools. Denies hematuria. No fevers. No cough. In the ER after dose of IV Cardizem he converted to sinus rhythm. A-fib with RVR New onset A-fib Currently sinus rhythm Continue home Bystolic Chads Vas2 score is 1. No need for anticoagulation Environmental Tech Dr De Oliveria evaluated. He reported he has sent PRN flecainide for patient to his pharm and patient can be discharged for follow up with Cardiology outpatient History of paroxysmal SVT On Bystolic Obstructive sleep apnea On CPAP Hypertension On Bystolic GERD On famotidine Morbid obesity Lifestyle modification/weight loss Total Time Total Time Spent Total Time Spent (In Minutes): 35 Total Time Includes: Examination of the Patient, Discharge Planning, Medication Reconciliation and Communication With Other Providers Discharge Plan Discharge Items Patient Disposition: Home - Self-Care Reason For Visit: A FIB Discharge Diagnosis: Paroxysmal Atrial fibrillation with rapid ventricular rate Condition on Discharge: Good Activity: Resume your previous activity Non-emergency contact: Primary Care Provider and Environmental Tech Call non-emergency contact if: you have any medication questions and your symptoms worsen Follow-up/Referrals: Aidne Briggs MD [Primary Care Provider] - Diet: Heart Healthy Addtl Attending Provider Instructions: Mr Torres You came to the hospital with palpitations and was found to be in atrial fibrillation. This has reverted back to normal rhythm. Cardiology has sent you flecainide to be used as needed. Please ensure follow up with your Environmental Tech. It was a pleasure taking care of you. Pending Studies at Discharge: No Stand-Alone Forms: [employer], Smoking Cessation Medications and DC Order Prescriptions: Continued flecainide 100 mg tablet 300 mg PO ONCE PRN (Reason: palpitations) Qty: 12 2RF Rx Instructions: Take 3 pills by mouth at once for extended episodes of palpitations. nebivolol 10 mg tablet 10 mg PO DAILY Qty: 90 3RF ibuprofen [Advil] 200 mg Tablet 600 mg PO Q6H PRN (Reason: Pain) famotidine 20 mg tablet 20 mg PO BID Discharge Orders: Discharge Order (Routine); Ordered 08/16/23 Ordered By: Lissette Williamson Admission Data Admit Date/Time: 08/16/23 05:15 Attending Provider: Lissette Williamson I. Admit Provider: Memo Antunez Primary Care Provider: Aiden Briggs Other Providers: Memo Antunez; Vito Dobson
--- NOTE | 2023-08-16 12:29 | XCELERA ---
[id number] [id number]
--- NOTE | 2023-08-16 13:28 | Electrocardiogram Report ---
Test Reason : Blood Pressure : / mmHG Vent. Rate : 111 BPM Atrial Rate : 000 BPM P-R Int : 000 ms QRS Dur : 104 ms QT Int : 338 ms P-R-T Axes : 000 020 005 degrees QTc Int : 459 ms Poor data quality, interpretation may be adversely affected Atrial fibrillation with rapid ventricular response Incomplete right bundle branch block possible Inferior infarct (cited on or before 17-NOV-2018) Abnormal ECG When compared with ECG of 27-JUL-2023 11:05, (unconfirmed) Atrial fibrillation has replaced Sinus rhythm Vent. rate has increased BY 55 BPM Incomplete right bundle branch block is now Present Confirmed by Arvin De Oliveira ([id number]) on 08/16/2023 1:28:38 PM Referred By: REFERRED SELF Confirmed By:Carlos Enrique De Oliveira
--- NOTE | 2023-08-17 19:44 | Electrocardiogram Report ---
Test Reason : Blood Pressure : / mmHG Vent. Rate : 060 BPM Atrial Rate : 060 BPM P-R Int : 198 ms QRS Dur : 100 ms QT Int : 400 ms P-R-T Axes : 007 010 018 degrees QTc Int : 400 ms Normal sinus rhythm possible Inferior infarct (cited on or before 17-NOV-2018) Incomplete right bundle branch block Abnormal ECG When compared with ECG of 16-AUG-2023 01:52, Sinus rhythm has replaced Atrial fibrillation Vent. rate has decreased BY 51 BPM Confirmed by Arvin De Oliveira ([id number]) on 08/17/2023 7:44:02 PM Referred By: REFERRED SELF Confirmed By:Carlos Enrique De Oliveira
== END 2023-08-16 11:34 | disposition home or self-care (01) | DRG 309 ==
LOC: ED 01:39 → EDINP 05:15